=== PATIENT | female | born 1995 | race Caucasian/White ===

== ENCOUNTER 2020-09-18 17:25 | Emergency (ER) | payer BC ==
[~2020-09-18] VITALS: Ht 165.1 cm; Wt 122.0 kg
[2020-09-18] MEDS: ONDANSETRON HCL 4MG/2ML INJ IV ONE (19:01)
[2020-09-18] MEDS: KETOROLAC 15MG/ML VIAL IV ONE (19:02)
[2020-09-18 21:05] VITALS: BP 114/68
[2020-09-18] MEDS: DIPHENHYDRAMINE 25MG CAPSULE PO ONE (21:05)
[2020-09-18] MEDS: HYDROCODONE/ACETAMINOPHEN 5/325MG TABLET PO ONE (21:05)
== END 2020-09-18 22:18 | disposition home or self-care (01) ==
LOC: ER 17:25
DX: S09.8XXA Other specified injuries of head, initial encounter (principal); W18.39XA Other fall on same level, initial encounter; Y93.89 Activity, other specified; Y92.89 Other specified places as the place of occurrence of the external cause; Y99.8 Other external cause status; M54.2 Cervicalgia; Z88.5 Allergy status to narcotic agent
CPT/HCPCS: 70450; 72125; 96374; 99285; J1885; J2405; Q0163